=== PATIENT | female | born 1970 | race Caucasian/White ===

== ENCOUNTER 2022-01-02 10:03 | Emergency (ER) | payer BC ==
[2022-01-02 10:13] VITALS: TEMP 97.8
[2022-01-02] MEDS ORDERED: HYDROmorphone 1 MG/ML 1 ML SYRINGE IVP STA (10:14)
--- NOTE | 2022-01-02 10:39 | XR ---
Right ankle HISTORY: Trauma and pain 3 views the right ankle An oblique, displaced distal metadiaphyseal right fibular fracture with bayonet apposition is present , some punctate associated ossific densities consistent with some comminution, there is lateral sublu xation at the tibiotalar joint. There is associated soft tissue swelling present. Possible punctate o ssific density present at the level of the ankle mortise. There may be avulsion injury or chip fractu re. IMPRESSION: Ankle fracture subluxation as described
--- NOTE | 2022-01-02 11:29 | ED ---
Lower Extremity Injury HPI - General Chief Complaint: Extremity Injury, Lower Stated Complaint: fall, ankle pain Time Seen by Provider: 01/02/22 10:06 Source: patient, EMS, RN notes reviewed Mode of arrival: EMS Limitations: no limitations - History of Present Illness Initial Comments: This a 51-year-old female presents emergency with chief complaint of right ankle injury. Patient presents via EMS. Patient states that she rolled over her ankle complains of diffuse ankle pain deformity. No head injury no loss conscious. Chin no prior fractures denies any paresthesias that she has pain with any sort of movement. - Related Data Allergies Allergy/AdvReac Type Severity Reaction Status Date / Time Penicillins Allergy Itching Verified 01/02/22 10:14 Sulfa (Sulfonamide Allergy Itching Verified 01/02/22 10:14 Antibiotics) Review of Systems ROS Statement: Those systems with pertinent positive or pertinent negative responses have been documented in the HPI. ROS Other: All systems not noted in ROS Statement are negative. General Exam Limitations: no limitations General appearance: alert, in no apparent distress Head exam: Present: atraumatic, normocephalic, normal inspection Respiratory exam: Present: normal lung sounds bilaterally. Absent: respiratory distress, wheezes, rales, rhonchi, stridor Cardiovascular Exam: Present: regular rate, normal rhythm, normal heart sounds. Absent: systolic murmur, diastolic murmur, rubs, gallop, clicks Extremities exam: Present: other (Right ankle there is a deformity mild swelling, neurovascular intact no foot tenderness no proximal tib-fib tenderness there is abrasion noted that is superficial) Neurological exam: Present: alert Skin exam: Present: warm, dry, intact, normal color. Absent: rash Course Vital Signs 01/02/22 10:05 Temperature 97.8 F Pulse Rate 64 Blood Pressure 121/59 O2 Sat by Pulse 100 Oximetry Procedures - Orthopedic Splinting/Casting Injury #1 Side: right Lower Extremity Injury Location: short leg, ankle Lower Extremity Immobilizer: posterior splint, synthetic pre-padded splint Other Orthopedic Equipment: crutches Medical Decision Making - Medical Decision Making Patient is distal tib-fib fracture patient was splinted follow-up with orthopedics as she has disrupted mortise joint she is neurovascularly intact. Disposition Clinical Impression: Fracture of distal end of right fibula Disposition: HOME SELF-CARE Condition: Stable Instructions (If sedation given, give patient instructions): Ankle Fracture (ED) Additional Instructions: Please return to the Emergency Department if symptoms worsen or any other concerns. Is patient prescribed a controlled substance at d/c from ED?: No Referrals: Ck Curtis MD [Primary Care Provider] - 1-2 days Dannie Dixon MD [Medical Doctor] - 1-2 days Time of Disposition: 11:28
[2022-01-02] MEDS ORDERED: ACET/COD 300 MG/30 MG STARTER PACK 6 TAB BTL PO STA (11:30)
[2022-01-02 13:25] VITALS: BP 140/76; PULSE 62; RESP 16
== END 2022-01-02 13:25 | disposition home or self-care (01) ==
LOC: EC 10:03
DX: S82.831A Other fracture of upper and lower end of right fibula, initial encounter for closed fracture (principal); Z88.0 Allergy status to penicillin; Z88.2 Allergy status to sulfonamides; W01.0XXA Fall on same level from slipping, tripping and stumbling without subsequent striking against object, initial encounter
CPT/HCPCS: 99283; 96374; 29515; 73610; J1170